=== PATIENT | female | born 1965 | race Two or more races ===

== ENCOUNTER 2017-06-04 07:02 | Emergency (ER) | payer BC ==
[2017-06-04 07:17] VITALS: BP 111/70
--- NOTE | 2017-06-04 07:28 | UC ---
Complaint Female HPI - HPI Summary HPI Summary: 52 yo female with 2 day hx of worsening dysuria/urgency/frequency no f/c no back pain no vag d/c or itch hx of pyleo in her 20's no hx stones - History Of Current Complaint Chief Complaint: UCGU Stated Complaint: URINARY ISSUE Time Seen by Provider: 06/04/17 07:27 Hx Obtained From: Patient Hx Last Menstrual Period: 09/2016 Onset/Duration: Gradual Onset, Lasting Days Timing: Intermittent, Lasting Minutes Severity Initially: Moderate Severity Currently: Mild Pain Intensity: 2 - severe with urination Pain Scale Used: 0-10 Numeric Character: Burning Aggravating Factor(s): Urination Associated Signs And Symptoms: Positive: Negative Related Hx: Similar Episode/Dx as: - uti - Allergies/Home Medications Allergies/Adverse Reactions: Allergies Allergy/AdvReac Type Severity Reaction Status Date / Time Caffeine Allergy JITTERY Verified 06/04/17 07:17 FOR HOURS GLUTEN INTOLERANCE Allergy ACHY Uncoded 06/04/17 07:17 JOINTS, FLARE UPS OF ASTHMA AND ARTHRITIS Home Medications: Home Medications Ibuprofen [Advil] 600 mg PO Q8HR PRN 06/04/17 [History Confirmed 06/04/17] PMH/Surg Hx/FS Hx/Imm Hx Previously Healthy: Yes - Surgical History Surgical History: Yes Surgery Procedure, Year, and Place: 1989' 5 inguinal hernias, [place]. 2000 & 2004 CSECTION X 2, [facility] [place]. 2006 ABDOMINOPLASTY AND UMBILICAL HERNIA REPAIR , [facility] [place]. 2009 LAPAROSCOPIC BILATERAL TUBAL LIGATION AND REMOVAL OF IUD, [facility] [place]. Right foot surgery- 07/2016- [place] - Family History Known Family History: Positive: Hypertension - Social History Alcohol Use: Rare Alcohol Amount: ONCE EVERY TWO WEEKS Substance Use Type: None Smoking Status (MU): Never Smoked Tobacco - Immunization History Most Recent Influenza Vaccination: Not UTD Review of Systems Constitutional: Negative Skin: Negative Eyes: Negative ENT: Negative Respiratory: Negative Cardiovascular: Negative Gastrointestinal: Negative Genitourinary: Dysuria, Frequency, Urgency Motor: Negative Neurovascular: Negative Musculoskeletal: Negative Neurological: Negative Psychological: Negative Is Patient Immunocompromised?: No All Other Systems Reviewed And Are Negative: Yes Physical Exam Triage Information Reviewed: Yes Appearance: Well-Appearing, No Pain Distress, Well-Nourished Vital Signs: Initial Vital Signs Temp 98.2 F 06/04/17 07:10 Pulse 68 06/04/17 07:10 Resp 16 06/04/17 07:10 BP 111/70 06/04/17 07:10 Pulse Ox 100 06/04/17 07:10 Vital Signs Reviewed: Yes Eyes: Positive: Conjunctiva Clear ENT: Positive: Hearing grossly normal. Negative: Nasal congestion, Nasal drainage, Trismus, Muffled/hoarse voice Neck: Positive: Supple, Nontender Respiratory: Positive: Lungs clear, Normal breath sounds, No respiratory distress Cardiovascular: Positive: RRR, No Murmur Abdomen Description: Positive: Nontender, No Organomegaly, Soft. Negative: CVA Tenderness (R), CVA Tenderness (L) Bowel Sounds: Positive: Present Musculoskeletal: Positive: ROM Intact, No Edema Neurological: Positive: Alert, Muscle Tone Normal Psychological Exam: Normal Skin Exam: Normal Diagnostics - Laboratory Diagnostic Studies Completed/Ordered: udip +++leuks and RBCs Complaint Female Dx - Differential Dx/Diagnosis Provider Diagnoses: acute cystitis Discharge - Discharge Plan Condition: Stable Disposition: HOME Prescriptions: Cephalexin CAP* [Keflex 500 CAP*] 500 mg PO BID #14 cap Fluconazole 150 MG (NF) [Diflucan 150 mg (NF)] 150 mg PO ONCE #1 tab Phenazopyridine TAB* [Pyridium 100 mg TAB*] 100 mg PO TID #6 tab Patient Education Materials: Urinary Tract Infection in Women (ED) Referrals: Elsi Slater MD [Primary Care Provider] - If Needed Additional Instructions: recheck for new or worsening symptoms recheck if not better in 2 days a urine culture is pending
[2017-06-04] MEDS ORDERED: Cephalexin CAP* 500 MG PO ONE (07:33)
[2017-06-04] MEDS ORDERED: Phenazopyridine TAB* 100 MG PO ONE (07:34)
== END 2017-06-04 07:46 | disposition home or self-care (01) ==
LOC: UCEAST 07:02
DX: N30.00 Acute cystitis without hematuria (principal); B95.7 Other staphylococcus as the cause of diseases classified elsewhere
CPT/HCPCS: 81003; 87077; 87086; 99212; A9270-GY; G0463

== ENCOUNTER 2019-07-19 05:42 | Inpatient (IN) | payer BC ==
[~2019-07-19 05:42] MED LIST: Buffered Lidocaine 1% SYRIN* 1 ML/SYRINGE INTRADERM ONE
--- OUTSIDE RECORDS SUMMARY | 2019-07-19 05:45 | XMS REPORT | Continuity of Care Document ---
:1965 External Reference #:[id number] Author Name Delgado Cowan MD (transmitted by agent of provider Margaret Lebron ) Address [address] [place] [address] Problems Active Problems Provider Date Cervical spondylosis without myelopathy Fredy Ge M.D. Onset: 12/01/2013 Social History Type Date Description Comments Sex Unknown Smokeless Tobacco Never Used Smokeless Tobacco ETOH Use Rarely consumes alcohol Tobacco Use Start: Unknown Patient has never smoked Recreational Drug Use Denies Drug Use Smoking Status Reviewed: 07/13/19 Patient has never smoked Exercise Type/Frequency Exercises regularly Allergies, Adverse Reactions, Alerts Active Allergies Reaction Severity Comments Date Dog Dander 06/11/2016 Cat Dander 06/11/2016 Codeine states had issues with breath 07/13/2019 Inactive Allergies NKDA 12/20/2013 Medications Active Medications SIG Qnty Indications Ordering Provider Date Tlso Brace When out of bed M51.36 Vassilios 05/06/2019 after surgery MD Chapo Acyclovir 1 by mouth 5 x d 75caps Fredy Ge, 11/30/2013 200mg for 5 days as M.D. Capsules needed Nizoral use as directed 3 Unknown 2% Shampoo times week Ibuprofen as needed Unknown 200mg Capsules Albuterol Sulfate prn Unknown Medications Administered in Office Medication SIG Qnty Indications Ordering Provider Date Depomedrol 40MG Lloyd Maxwell M.D. 03/04/2016 Injection Immunizations Description No Information Available Vital Signs Date Vital Result Comment 07/13/2019 12:58pm Height 64 inches 5'4" Weight 121.00 lb Heart Rate 78 /min BP Systolic 90 mmHg BP Diastolic 60 mmHg Pain Level 7 BMI (Body Mass Index) 20.8 kg/m2 05/06/2019 10:36am Height 64 inches 5'4" Weight 120.00 lb BP Systolic 112 mmHg BP Diastolic 72 mmHg Pain Level 8 BMI (Body Mass Index) 20.6 kg/m2 Results Test Acquired Date Facility Test Result H/L Range Note Type & Screen 07/06/2019 [facility] Patient Blood O Positive [address] [place] [address] [phone] Antibody Screen NEGATIVE 1 LOW BACK PAIN, SPINAL STENOSIS, LUMBAR REGION WITH Procedures Date Code Description Status 11/16/2017 [id number] Colonoscopy Completed Medical Devices Description No Information Available Encounters Type Date Location Provider Dx Diagnosis Office Visit 05/06/2019 [facility] M54.5 Low back pain 10:30a Of Roddy Cowan MD M48.061 Spinal stenosis, lumbar region without neurogenic bere M51.36 Other intervertebral disc degeneration, lumbar region Office Visit 03/02/2019 9:00a Neurosurgery Eloisa M54.5 Low back pain Services [facility] Office Visit 02/16/2019 1:30p Neurosurgery [facility]isa M48.061 Spinal stenosis, [facility] lumbar region without neurogenic bere M54.5 Low back pain Assessments Date Code Description Provider 05/17/2019 M54.5 Low back pain Delgado Cowan MD 05/17/2019 M48.061 Spinal stenosis of lumbar region Delgado Cowan MD 05/17/2019 M51.36 Other intervertebral disc degeneration, Delgado Cowan MD lumbar region 05/06/2019 M54.5 Low back pain Delgado Cowan MD 05/06/2019 M48.061 Spinal stenosis of lumbar region Delgado Cowan MD 05/06/2019 M51.36 Other intervertebral disc degeneration, Delgado Cowan MD lumbar region 03/02/2019 M54.5 Low back pain ALLIE Ramírez 02/16/2019 M48.061 Spinal stenosis of lumbar region ALLIE Ramírez 02/16/2019 M54.5 Low back pain ALLIE Ramírez Plan of Treatment Future Appointment(s):10/28/2019 8:30 am - Delgado Cowan MD at [facility]08/24/2019 9:30 am - Delgado Cowan MD at [facility]07/27/2019 11:30 am - Delgado Cowan MD at [facility]07/19/2019 7:30 am - ALLIE Ramírez at [facility]07/19/2019 7:30 am - Delgado Cowan MD at [facility] Functional Status Description No Information Available Mental Status Description No Information Available Referrals Description No Information Available
[2019-07-19] MEDS ORDERED: Lactated Ringers 1000 ML Bag* 1,000 ML IV SCH (06:00)
[2019-07-19] MEDS ORDERED: Famotidine IV* 10 MG/ML 2 ML (20 mg) IV ONE (06:00)
[2019-07-19] MEDS ORDERED: Dexamethasone IV* 4 MG/ML 1 ML (4 MG) IV SLOW PU ONE (06:00)
[2019-07-19] MEDS ORDERED: Bacitracin INJECTION* 50,000 UNITS ONE (06:40)
[2019-07-19] MEDS ORDERED: Bupivacaine 0.25% EPI 200,000* 30 ML SDV ONE (06:40)
[2019-07-19] MEDS ORDERED: Famotidine IV* 10 MG/ML 2 ML (20 mg) ONE (07:06)
[2019-07-19] MEDS ORDERED: Buffered Lidocaine 1% SYRIN* 1 ML/SYRINGE INTRADERM ONE (07:06)
[2019-07-19] MEDS ORDERED: Dexamethasone IV* 4 MG/ML 1 ML (4 MG) ONE (07:06)
[2019-07-19] MEDS ORDERED: ceFAZolin 2 GM PREMIX in ORs 2 GM/50 ML BAG ONE (07:06)
[2019-07-19] MEDS ORDERED: Lidocaine 2% PF * 5 ML VIAL ONE (07:18)
[2019-07-19] MEDS ORDERED: Succinylcholine* 20 MG/ML 10 ML VIAL ONE (07:18)
[2019-07-19] MEDS ORDERED: Propofol* 10 MG/ML 20 ML BTL ONE (07:18)
[2019-07-19] MEDS ORDERED: Midazolam* 1 MG/ML 5 ML VIAL (5 MG) ONE (07:18)
[2019-07-19] MEDS ORDERED: fentaNYL* 50 MCG/ML 2 ML VIAL (100 MCG VIAL) ONE ×4 (07:18→13:01)
[2019-07-19] MEDS ORDERED: Naloxone* 0.4 MG/ML 1 ML VIAL IV PRN (07:42)
[2019-07-19] MEDS ORDERED: Ibuprofen TAB* 600 MG PO PRN (07:42)
[2019-07-19] MEDS ORDERED: oxyCODONE/Acetamin 5/325 MG* TAB PO PRN (07:42)
[2019-07-19] MEDS ORDERED: DiMENhydriNATE IV* 50 MG/ML VIAL IV PUSH PRN (07:42)
[2019-07-19] MEDS ORDERED: HYDROcodone/ACETAMIN 5-325 MG* 1 TAB PO PRN (07:42)
[2019-07-19] MEDS ORDERED: Remifentanil* 2 MG VIAL ONE (07:59)
[2019-07-19] MEDS ORDERED: Phenylephrine 10 MG/ML VIAL* 1 ML VIAL ONE (08:28)
[2019-07-19] MEDS ORDERED: Phenylephrine 40 MCG/ML SYRINGE ONE (08:31)
[2019-07-19] MEDS ORDERED: EPHEDrine (Pressors)* 50 MG/ML VIAL ONE (08:36)
[2019-07-19] MEDS ORDERED: Propofol* 500 MG/50 ML BTL ONE (08:46)
[2019-07-19] MEDS ORDERED: Ondansetron INJ* 2 MG/ML VIAL ONE (10:58)
[2019-07-19] MEDS: fentaNYL* 50 MCG/ML 2 ML VIAL (100 MCG VIAL) IV PRN ×5 (11:40→13:03)
[2019-07-19] MEDS ORDERED: Acetaminophen TAB* 325 MG PO PRN (11:44)
[2019-07-19] MEDS ORDERED: Magnesium Hydroxide LIQ* 30 ML UDC PO PRN (11:44)
[2019-07-19] MEDS ORDERED: oxyCODONE/Acetamin 5/325 MG* TAB ONE ×2 (11:47→13:01)
[2019-07-19] MEDS ORDERED: Ibuprofen TAB* 600 MG ONE (12:36)
--- NOTE | 2019-07-19 14:30 | CONS ---
[facility] MEDICINE CONSULTATION REPORT: DATE OF CONSULT: 07/19/19 PROVIDER: Precious Tarango NP ATTENDING PHYSICIAN: Dr. Cowan. CONSULTING PHYSICIAN: Dr. Belén Zhu (dictated by Precious Tarango NP). REASON FOR CONSULT: Co-management of care during this hospitalization. HISTORY OF PRESENT ILLNESS: Ms. Alan is a 54-year-old female with a past medical history significant for asthma, who complained of severe lower back pain for approximately 3 years. Due to the ongoing pain and daily limitations of activities, the patient was seen by Dr. Cowan, who recommended L5-S1 MIS TLIF with PEEK. The patient presented today for the elective lower back surgery with Dr. Cowan. Postoperatively, the patient denies any recent illnesses. She denies any fever , chills. She denies any unintended weight loss, chest pain, edema, cough, hemoptysis, or shortness of breath. No nausea, vomiting, diarrhea, or abdominal pain. She denies any gross hematuria or dysuria. Denies any focal weakness or sensory loss, visual complaints, dysphagia, arthralgias, myalgias, rashes, lesions, open sores, psychosis or anxiety. The patient does complain of soreness to her lower back. PAST MEDICAL HISTORY: Significant for asthma. PAST SURGICAL HISTORY: 1. Hernia repair. 2. . 3. Tubal ligation. 4. [place] teeth removed. 5. Foot surgery. HOME MEDICATIONS: None. ALLERGIES: To CODEINE. FAMILY HISTORY: No reported history of coronary artery disease. Mother with diabetes. Mother with breast cancer. SOCIAL HISTORY: The patient denies any tobacco, alcohol, or illicit drug use. She is . She lives with her child. Surrogate decision maker in the event she is unable to make her own decisions is her aunt, Ellen Cotter. She is a full code. REVIEW OF SYSTEMS: A 14-point review of systems was completed. All pertinent positives were mentioned in the HPI. PHYSICAL EXAM: General: At this time, Ms. Alan is a 54-year-old female. She is alert and oriented, resting on the stretcher in PACU. She is in no acute distress. Vital Signs: Blood pressure 119/79, heart rate 79, respirations are 17, O2 saturation 100%, temperature was 97.2. HEENT: Head is atraumatic, normocephalic. Eyes: EOMs are intact. Sclerae anicteric and not pale. Oral mucosa appeared to be moist. Neck is supple. Lungs are clear to auscultation bilaterally. No wheezes, rales, or rhonchi. Cardiac: S1, S2. Regular rate and rhythm. No murmurs, rubs, or gallops. Abdomen is soft and nontender. Bowel sounds are present x4. Extremities: She is able to move all 4 extremities. Sensation is intact in all 4 extremities. Pedal pulses are +2 bilaterally. Radial pulses are +2. Neurologic: She is awake, alert, oriented x3. Speech is clear. Thought process is intact. There are no gross focal deficits. Skin: Intact. DIAGNOSTIC STUDIES/LAB DATA: She had an INR on 06/22/19 that was 0.91. CBC from 06/22/19: WBCs 5.22, RBCs 4.17, hemoglobin 12.8, hematocrit was 37, platelet count was 236. Sodium 138, potassium 4.1, chloride 99, carbon dioxide was 25, glucose was 105, BUN was 14, creatinine 0.7, calcium was 9.3. Alkaline phosphatase was 44, ALTs were 12, ASTs were 15. Urine was within normal limits and urine culture showed no growth. ASSESSMENT AND PLAN: Ms. Alan is a 54-year-old female with a past medical history significant for asthma, who presented to [facility] [place] for an elective L5-S1 TLIF with PEEK with Dr. Cowan. Our recommendations are as follows: 1. Status post L5-S1 TLIF with PEEK. Management per Neurosurgery. PT/OT per Neurosurgery. Pain management per Neurosurgery. Bowel meds per Neurosurgery. DVT prophylaxis per Neurosurgery. 2. Asthma. The patient does not currently take any medications for her asthma. We will continue to monitor and treat as needed. 3. FEN: She can have a regular diet. 4. Code status: She is a full code. 5. DVT prophylaxis: She will be placed on SCDs. TIME SPENT: Time spent on this consultation was 45 minutes, greater than half that time was spent at the bedside reviewing events leading thus far to her hospitalization, performing physical exam, and reviewing my plan of care. I have discussed with my attending, Dr. Belén Zhu; she is in agreement with my plan. PRECIOUS TARANGO, FOREIGN EXCHANGE STUDENT COORDINATOR [id number]/[facility] #: [id number] GR[facility] SQUARE HOSPITALFabio
--- NOTE | 2019-07-19 15:36 | OP ---
DATE OF OPERATION: 07/19/19 - ROOM #331 DATE OF : 69 SURGEON: Delgado Cowan MD ASSISTANTS: 1. JAYLA Arriola 2. JAYLA Magallanes The case was done with the assistance of JAYLA because of the complexity of the case. ANESTHESIA: General. PRE-OP DIAGNOSIS: Degenerative disk disease. POST-OP DIAGNOSIS: Degenerative disk disease. OPERATIVE PROCEDURE: The patient underwent left L5-S1 MIS TLIF with PEEK interbody cage, DBX, right iliac crest bone graft through a separate incision, and pedicle screws at L5 and S1 with intraoperative monitoring and intraoperative navigation. ESTIMATED BLOOD LOSS: 30 cc. COMPLICATIONS: None. SUMMARY: The patient is a very pleasant 54-year-old female with complaints of severe axial back pain with severe disability. The patient failed conservative treatment modalities and she was offered the option of surgical intervention. After explaining expectations, limitations, and possible complications of the procedure to the patient in extent with complications including, but not limited to bleeding, infection, risk of injury to adjacent structures, coma, paralysis, , need for additional procedures, anesthesia risks, stroke, blindness, cancer, instability, hardware failure, adjacent level disease, pseudoarthrosis, spinal fluid leak, injury to the intraabdominal contents, loss of bladder or bowel control, post-operative hematoma, DVT, need for tracheostomy or gastrostomy, need for prolonged ICU stay, prolonged rehabilitation, prolonged hospitalization; the patient was agreeable to proceed with surgery and informed consent was obtained. The patient understood that her condition may not improve and in fact may get worse after surgery and that she may need to have additional procedures in the future. She also understood that operative plan may be modified according to intraoperative findings and conditions and that procedure may be abandoned or done in more than 1 stages. DESCRIPTION OF PROCEDURE: The patient was brought to the operating room and was placed under general anesthesia by the anesthesia team. She was carefully positioned prone on the Blake table and all bony prominences were meticulously padded. Her skin was prepped and draped in the standard fashion. After appropriate surgical pause and patient identification, a small incision over the right iliac crest was performed with #10 surgical blade after infiltrating the skin with local anesthetic. After this incision and with assistance of Jamshidi needle, the Corex needle was inserted and bone graft was harvested to be saved for use in the arthrodesis part of the procedure. Through the same incision, the navigation star was secured in place and intraoperative O-arm imaging was obtained. The patient's data was transferred to the navigation platform. Under stereotactic navigation, the trajectories of the pedicles at L5 and S1 were marked on the skin. The skin was infiltrated with local anesthetic and the pedicles were cannulated with the use of high- speed drill, awl-tip tap, and Medtronic Voyager ATS pedicle screws were inserted. 6.5 x 40 mm length for the S1 pedicle and 6.5 x 45 for the L5 level were used. Through the left incision and through a separate fascial incision, the METRx tubular retractor was inserted with assistance of navigation guidance. This was docked over the left L5-S1 facet and extended all the way to pars and the base of the spinous process. Intraoperative microscope was brought into the field, and after final exposure of all bony surfaces, high- speed drill was used perform a medial facetectomy and partial laminectomy. Bone from this part of the procedure was saved for the arthrodesis part of the procedure. Then, the laminectomy was finished with use of Kerrison punches. The ligamentum flavum was gently removed and the thecal sac and the S1 nerve root were readily identified. The medial and superior part of the S1 pedicle was carefully skeletonized, and after gently retracting the nerve root and the thecal sac medially, a #11 surgical blade was used to perform an annulotomy and diskectomy and disk space preparation was performed with use of pituitary rongeurs, serial dilators, Kerrison punches, and curettes. Then, after appropriate sizing of all the disk space, the mixture of locally harvested iliac crest bone graft as well as DBX was inserted into the disk space and then a Medtronic Elevate expandable PEEK cage was inserted after being filled with a mixture of the bone graft. The cage was gently expanded and after removing the expanded duty dental assistant and after confirmation of meticulous hemostasis, copious irrigation and meticulous inspection, the tubular retractor was gently removed and the fascial opening was closed with 0 interrupted Vicryl sutures. Then, attention was brought to insert two cobalt chrome rods. After appropriate sizing of the rods length, the cobalt chrome rods were inserted through the same incisions. These were secured in place with screw head caps and a second intraoperative O- arm imaging was obtained in order to confirm appropriate position of the hardware. O- arm imaging confirmed excellent placement of all hardware, and after final tightening of the cap screws, the extenders were removed as well as the navigation star, and the wounds were then copiously irrigated, and after confirmation of meticulous hemostasis and meticulous inspection, they were closed by layers. 0 interrupted Vicryl sutures were used to approximate the dorsal fascia defects and 2-0 inverted interrupted Vicryl sutures were used to approximate the subcutaneous tissue. The skin was then covered with Dermabond. At the end of the procedure, all counts were reported to be correct. The patient remained hemodynamically stable throughout the case. The patient was then turned supine, was extubated, and was transferred to recovery in excellent condition. [id number]/[facility] #: [id number] CONSTANTIN
--- NOTE | 2019-07-19 16:55 | PN ---
Progress Note - Progress Note Date of Service: 07/19/19 SOAP: Subjective: []Patient tolerated procedure well. On regular floor. Ambulated to bed. Tolerates liquids. Had nausea/ emesis earlier. Objective: []VSS, Afebrile Wound s,c,d AAOx3 KHRIS, CN II-XII intact Motor 5/5 all extremities Sensory grossly intact to light touch Assessment: []54 yof POD#0 Left L5-S1 MIS TLIF Plan: []Monitor VS, Neurochecks, Encourage ambulation XR in am Possible Dc in am. Full instructions were given. No Lifting, No bending, No driving Keep incision dry. May shower after 2 days. No baths Brace when out of bed Follow up in the office in 7-10 days (patient has appointment already) Appreciate IM care. Ernie Cowan MD
[2019-07-19] MEDS: Ondansetron INJ* 2 MG/ML VIAL IV PRN (18:00)
[2019-07-19] MEDS: HYDROcodone/ACETAMIN 5-325 MG* 1 TAB PO PRN (18:59)
[2019-07-20] MEDS: HYDROcodone/ACETAMIN 5-325 MG* 1 TAB PO PRN (00:26)
[2019-07-20] MEDS: Ondansetron INJ* 2 MG/ML VIAL IV PRN (00:26)
[2019-07-20] MEDS ORDERED: NS 0.9% 500 ML* 500 ML IV ONE (02:48)
[2019-07-20] MEDS ORDERED: Cyclobenzaprine TAB* 10 MG PO PRN (08:05)
--- NOTE | 2019-07-20 09:21 | PN ---
Subjective Date of Service: 07/20/19 Family History: Unchanged from Admission Social History: Unchanged from Admission Past Medical History: Unchanged from Admission Objective Active Medications: Acetaminophen (Tylenol Tab*) 650 mg PO Q4H PRN PRN Reason: MILD PAIN or TEMP > 100.4 Last Admin: 07/20/19 07:38 Dose: 650 mg Hydrocodone Bitart/Acetaminophen ([place] 5-325 Tab*) 2 tab PO Q4H PRN PRN Reason: PAIN - SEVERE Last Admin: 07/20/19 00:26 Dose: 2 tab Cyclobenzaprine HCl (Flexeril Tab*) 10 mg PO TID PRN PRN Reason: SPASMS Last Admin: 07/20/19 08:24 Dose: 10 mg Magnesium Hydroxide (Milk Of Magnesia Liq*) 30 ml PO DAILY PRN PRN Reason: CONSTIPATION Ondansetron HCl (Zofran Inj*) 4 mg IV Q6H PRN PRN Reason: NAUSEA/VOMITING Last Admin: 07/20/19 00:26 Dose: 4 mg Vital Signs - 8 hr 07/20/19 07/20/19 07/20/19 03:07 03:49 07:27 Temperature 98 F 99 F Pulse Rate 68 66 Respiratory 16 16 14 Rate Blood Pressure 110/66 104/50 (mmHg) O2 Sat by Pulse 99 98 Oximetry 07/20/19 07/20/19 07:47 08:24 Temperature Pulse Rate Respiratory 14 14 Rate Blood Pressure (mmHg) O2 Sat by Pulse Oximetry Oxygen Devices in Use Now: None Assess/Plan/Problems-Billing Assessment: This is a 54 year old female with a past medical history significant for asthma who was admitted on 07/19/19 S/P TLIF with PEEK cage. Status and Disposition: Condition: stable Disposition: Admit inpatient.
[2019-07-20] MEDS ORDERED: oxyCODONE/Acetamin 5/325 MG* TAB PO PRN ×2 (09:24→09:25)
[2019-07-20] MEDS ORDERED: NS 0.9% 1000 ML** 1,000 ML IV ONE (11:08)
[2019-07-20 15:11] VITALS: BP 92/50
--- NOTE | 2019-07-20 20:52 | PN ---
Progress Note - Progress Note Date of Service: 07/20/19 SOAP: Subjective: [] Patient was earlier in am. No events ON. Ambulates. Had some PERES ON with narcotics, resolved this am. No positional PERES. Voids. Objective: []VSS, Afebrile Wound s,c,d AAOx3 KHRIS, CN II-XII intact Motor 5/5 all extremities Sensory grossly intact to light touch Assessment: []54 yof POD#1 Left L5-S1 MIS TLIF Plan: []Monitor VS, Neurochecks, Encourage ambulation XR revealed good placement of hardware, good alignment of lumbar spine. DC later today Full instructions were given. No Lifting, No bending, No driving Keep incision dry. May shower after 2 days. No baths Brace when out of bed Follow up in the office in 7-10 days (patient has appointment already) Appreciate IM care. Ernie Cowan MD
--- NOTE | 2019-07-20 21:51 | DS ---
CC: Dr. Slater; Dr. Cowan.* DISCHARGE SUMMARY: DATE OF ADMISSION: 07/19/19 DATE OF DISCHARGE: 07/20/19 PROVIDER: Chitra Bhandari NP ATTENDING PHYSICIAN: Dr. Lucia.* (DICTATED BY ALLIE LEON) PRIMARY CARE PHYSICIAN: Dr. Slater. CONSULTING PHYSICIAN: Dr. Cowan. PRIMARY DIAGNOSIS: Status post left L5-S1 TLIF with PEEK cage. SECONDARY DIAGNOSIS: Asthma. PROCEDURE: Status post L5-S1 TLIF with PEEK cage. STUDIES: Postoperative lumbar x-rays showed status post spinal fusion. PERTINENT LABORATORY DATA: None for this admission. HISTORY OF PRESENT ILLNESS/HOSPITAL COURSE: This is a 54-year-old female with the past medical history significant for asthma and spinal stenosis who was admitted on 07/19/19 status post L5-S1 TLIF with PEEK cage. Her hospital course was relatively unremarkable except for softer blood pressures, intermittently symptomatic upon position changes. Received 1 L of normal saline bolus this morning which she responded well. Symptoms decreased. Encouraged that she continue oral intake. Pain well managed with 1 Percocet and Flexeril. Today, she was seen resting in bed, had good bed mobility, able to roll without assistance while keeping her spine in line. [place] comfortable with putting her brace on and off independently and able to walk without much difficulty. Denied any numbness or tingling in either extremity, able to dorsi and plantarflex. REVIEW OF SYSTEMS: An 11-point system review was performed which was negative for any chest pain, shortness of breath, abdominal pain, nausea, vomiting, headaches, dizziness, lightheadedness. Positive for lower back pain. PHYSICAL EXAMINATION: 98.7 Fahrenheit, 75 pulse, 16 respiration, 96% oxygen on room air, 92/50 blood pressure. General: This is a well-developed woman seen resting in bed, no acute distress noted. Eyes: Conjunctivae pink and moist. PERRLA. EOM intact. ENT: Mucous membranes are moist. Oropharynx clear. Neck is supple. Cardiac: S1 and S2 present, heart rate regular. No murmurs, gallops, or rubs appreciated. Respiratory: Lung sounds clear throughout bilaterally on room air with no accessory muscle use noted. Abdomen: Soft, nontender, and nondistended with positive bowel sounds x4. Musculoskeletal: Able to move all extremities. 2+ positive pedal pulses. No clubbing or cyanosis of the digits. Neurological: Sensation intact to light touch, able to move all extremities. No focal deficits appreciated. Skin: Dressings to lower back are clean, dry, and intact with no evidence of erythema, edema, or drainage. Psychiatric: Alert and oriented x4. No signs and symptoms of anxiety or depression. DISCHARGE PLAN: Diet is regular diet. ACTIVITY: No bending, twisting, or lifting anything heavier than a coffee cup. RETURN PRECAUTIONS: The patient is to return to the emergency room if she develops sudden chest pain, shortness of breath. She should call Dr. Cowan should she notice any signs or symptoms of infection including fever of 101 degrees or higher, drainage from the incisions or if she notices any increasing redness or edema surrounding the incisions, to wear back brace at all times when out of bed. PLAN FOR EACH CONDITION: 1. Status post L5-S1 TLIF PEEK cage. She is to follow up with Dr. Cowan within the week. She already has an appointment scheduled to use Flexeril and Percocet for pain control and to wean off the narcotic pain medicine as soon as her pain will allow. I recommend that she uses stool softeners while on the narcotics. 2. Asthma. Appears to be under control at this time. Had no exacerbations in the hospital. Does not have an inhaler at home as she has not had the need for it in sometime. CONTINUED HOME MEDICATIONS: 1. Acetaminophen 650 mg p.o. q.4 hours p.r.n. 2. Cyclobenzaprine 10 mg p.o. t.i.d. p.r.n. 3. Oxycodone/acetaminophen 5/325 one tab p.o. q.4 hours p.r.n. 4. Acyclovir 400 mg p.o. b.i.d. p.r.n. CONDITION UPON DISCHARGE: Stable. DISPOSITION: To home. Time spent on patient is about 30 minutes. ALLIE LEON [id number]/[facility] #: [id number] [employer]
== END 2019-07-20 16:35 | disposition home or self-care (01) | DRG 304 ==
LOC: AA 05:42 → SSU 11:44
PROVIDERS: ADMIT Neurological Surgery; ATTEND Internal Medicine
PROC: 0QB20ZZ Excision of Right Pelvic Bone, Open Approach (ICD-10-PCS; 2019-07-19)
PROC: 01NB0ZZ Release Lumbar Nerve, Open Approach (ICD-10-PCS; 2019-07-19)
PROC: 0ST20ZZ Resection of Lumbar Vertebral Disc, Open Approach (ICD-10-PCS; 2019-07-19)
PROC: 0SG30AJ Fusion of Lumbosacral Joint with Interbody Fusion Device, Posterior Approach, Anterior Column, Open Approach (ICD-10-PCS; principal; 2019-07-19 07:30)
DX: M51.27 Other intervertebral disc displacement, lumbosacral region (principal); M48.061 Spinal stenosis, lumbar region without neurogenic claudication; M51.36 Other intervertebral disc degeneration, lumbar region; J45.909 Unspecified asthma, uncomplicated; R51 Headache; Z88.5 Allergy status to narcotic agent; Z83.3 Family history of diabetes mellitus; Z80.3 Family history of malignant neoplasm of breast; Z79.1 Long term (current) use of non-steroidal anti-inflammatories (NSAID); Z79.51 Long term (current) use of inhaled steroids; Z79.899 Other long term (current) drug therapy; Z82.49 Family history of ischemic heart disease and other diseases of the circulatory system
CPT/HCPCS: 72100; 76000; A9270-GY; C1713; C9359; J0330; J0690; J1100; J2250; J2405; J2704; J3010

== ENCOUNTER 2019-07-23 21:14 | Emergency (ER) | payer BC ==
[2019-07-23 21:31] LABS: ABS Basophils 0.1 10^3/ul (0-0.2); ABS Eosinophils 0.2 10^3/ul (0-0.6); ABS Lymphocytes 1.9 10^3/ul (1.0-4.8); ABS Monocytes 0.4 10^3/ul (0-0.8); ABS Neutrophils 2.9 10^3/ul (1.5-7.7); Eosinophil % 3.1 %; Hematocrit 38 % (35-47); Hemoglobin 13.3 g/dL (12.0-16.0); Lymphocyte % 33.6 %; Mean Corpuscular HGB Conc 35 g/dL (31-36); Mean Corpuscular Hemoglobin 32 pg (27-31); Mean Corpuscular Volume 91 fL (80-97); Mean Platelet Volume 7.5 fL (7.4-10.4); Nucleated Red Blood Cells % 0.1; Platelet Count 251 10^3/uL (150-450); Red Blood Count 4.23 10^6 /uL (3.70-4.87); Red Cell Distribution Width 12 % (10-15); White Blood Count 5.5 10^3/uL (3.5-10.8)
--- NOTE | 2019-07-23 21:33 | ED ---
Palpitations / Dysrhythmia - HPI Summary HPI Summary: Patient with history of back fusion surgery 4 days ago states she stopped taking her postop prescription oxycodone this afternoon with subsequent episode of dyspnea, lightheadedness and palpitations that lasted about an hour. Patient decided it was possible withdrawal symptoms and took half an oxycodone with subsequent resolution of symptoms prior to arrival. Denies prior history of same symptoms. Denies prior cardiac history. Denies family cardiac history. Denies fever, cough, sore throat, CP, N/V/D, abdominal pain, change in urine, change in BM. Medical history is exercise-induced asthma. Nonsmoker. - History of Current Complaint Time Seen by Provider: 07/23/19 21:16 Hx Obtained From: Patient Onset/Duration: Sudden Onset, Lasting Hours Severity Initially: Moderate Severity Currently: Moderate Character: Fast, Irregular Aggravating: Rest Alleviating: Other Associated Signs & Symptoms: Lightheadedness, Shortness of Breath - Allergy/Home Medications Allergies/Adverse Reactions: Allergies Allergy/AdvReac Type Severity Reaction Status Date / Time caffeine Allergy JITTERY Verified 07/19/19 06:59 FOR HOURS codeine Allergy Difficulty Verified 07/19/19 06:59 Breathing GLUTEN INTOLERANCE Allergy ACHY Uncoded 07/19/19 06:59 JOINTS, FLARE UPS OF ASTHMA AND ARTHRITIS PMH/Surg Hx/FS Hx/Imm Hx Endocrine/Hematology History: Reports: Hx Anemia - TEND TO HAVE LOW IRON COUNTS Denies: Hx Diabetes, Hx Thyroid Disease Cardiovascular History: Reports: Other Cardiovascular Problems/Disorders - HX OF LOW BLOOD PRESSURE Denies: Hx Hypertension, Hx Pacemaker/ICD Respiratory History: Reports: Hx Asthma - INHALER PRN Denies: Hx Chronic Obstructive Pulmonary Disease (COPD), Other Respiratory Problems/Disorders GI History: Reports: Other GI Disorders - GLUTEN INTOLERANT Denies: Hx Ulcer History: Denies: Hx Renal Disease, Other Problems/Disorders Musculoskeletal History: Reports: Hx Arthritis - NO MEDS, Hx Tendonitis - LEFT UPPER FOOT Denies: Other Musculoskeletal History Sensory History: Reports: Hx Contacts or Glasses - CONTACT, WILL WEAR GLASSES DOS Denies: Hx Hearing Aid Opthamlomology History: Reports: Hx Contacts or Glasses - CONTACT, WILL WEAR GLASSES DOS Neurological History: Denies: Other Neuro Impairments/Disorders Psychiatric History: Denies: Hx Panic Disorder - Cancer History Hx Chemotherapy: No Hx Radiation Therapy: No - Surgical History Surgery Procedure, Year, and Place: 1989'S 5 inguinal hernias, [place]. 2000 & [place] 2[place] [facility] [place] ABDOMINOPLASTY AND UMBILICAL HERNIA REPAIR , [facility] [place]. 2010 LAPAROSCOPIC BILATERAL TUBAL LIGATION AND REMOVAL OF IUD, [facility] [place]. [place] foot surgery- 07/2016- [facility] Hx Anesthesia Reactions: Yes - PROBLEMS BREATHING WITH A PAIN MED?GIVEN , IN [place] Infectious Disease History: No Infectious Disease History: Reports: History Other Infectious Disease - herpes Denies: Hx Clostridium Difficile, Hx Hepatitis, Hx Human Immunodeficiency Virus (HIV), Hx of Known/Suspected MRSA, Hx Shingles, Hx Tuberculosis, Hx Known/ Suspected VRE, Traveled Outside the [place] in Last 30 Days - Family History Known Family History: Positive: Hypertension - Social History Alcohol Use: None Alcohol Amount: ONCE EVERY TWO WEEKS Substance Use Type: Reports: None Smoking Status (MU): Never Smoked Tobacco Review of Systems Constitutional: Negative Eyes: Negative ENT: Negative Positive: Palpitations Positive: Shortness Of Breath Gastrointestinal: Negative Genitourinary: Negative Musculoskeletal: Negative Skin: Negative Neurological: Negative Psychological: Normal All Other Systems Reviewed And Are Negative: Yes Physical Exam Triage Information Reviewed: Yes Vital Signs On Initial Exam: Initial Vitals Temp Pulse Resp BP Pulse Ox 97.5 F 94 16 130/90 97 07/23/19 21:15 07/23/19 21:15 07/23/19 21:15 07/23/19 21:15 07/23/19 21:15 Vital Signs Reviewed: Yes Appearance: Positive: Well-Appearing Skin: Positive: Warm Head/Face: Positive: Normal Head/Face Inspection Eyes: Positive: Normal ENT: Positive: Normal ENT inspection Neck: Positive: Supple Cardiovascular: Positive: Normal Abdomen Description: Positive: Nontender Musculoskeletal: Positive: Normal Neurological: Positive: Normal Psychiatric: Positive: Normal AVPU Assessment: Alert - Cap[place] Coma Scale Best Eye Response: 4 - Spontaneous Best Motor Response: 6 - Obeys Commands Best Verbal Response: 5 - Oriented Coma Scale Total: 15 Procedures - Sedation Patient Received Moderate/Deep Sedation with Procedure: No Diagnostics - Vital Signs Vital Signs Temp Pulse Resp BP Pulse Ox 07/23/19 21:29 79 07/23/19 21:25 83 24 150/92 97 07/23/19 21:15 97.5 F 94 16 130/90 97 - Laboratory Lab Results: Lab Results 07/23/19 Range/Units 21:23 WBC 5.5 (3.5-10.8) 10^3/uL RBC 4.23 (3.70-4.87) 10^6 /uL Hgb 13.3 (12.0-16.0) g/dL Hct 38 (35-47) % MCV 91 (80-97) fL MCH 32 H (27-31) pg MCHC 35 (31-36) g/dL RDW 12 (10-15) % Plt Count 251 (150-450) 10^3/uL MPV 7.5 (7.4-10.4) fL Neut % (Auto) 52.7 % Lymph % (Auto) 33.6 % [place] % (Auto) 7.9 % Eos % (Auto) 3.1 % Baso % (Auto) 2.7 % Absolute Neuts (auto) 2.9 (1.5-7.7) 10^3/ul Absolute Lymphs (auto) 1.9 (1.0-4.8) 10^3/ul Absolute Monos (auto) 0.4 (0-0.8) 10^3/ul Absolute Eos (auto) 0.2 (0-0.6) 10^3/ul Absolute Basos (auto) 0.1 (0-0.2) 10^3/ul Absolute Nucleated RBC 0.0 10^3/ul Nucleated RBC % 0.1 Result Diagrams: 07/23/19 21:23 07/23/19 21:23 Lab Statement: Any lab studies that have been ordered have been reviewed, and results considered in the medical decision making process. Course/Dx - Course Course Of Treatment: Patient with history of back fusion surgery 4 days ago states she stopped taking her postop prescription oxycodone this afternoon with subsequent episode of dyspnea, lightheadedness and palpitations that lasted about an hour. Patient decided it was possible withdrawal symptoms and took half an oxycodone with subsequent resolution of symptoms prior to arrival. Denies prior history of same symptoms. Denies prior cardiac history. Denies family cardiac history. Denies fever, cough, sore throat, CP, N/V/D, abdominal pain, change in urine, change in BM. Medical history is exercise-induced asthma. Nonsmoker. Vital signs within normal limits. Labs unremarkable. EKG sinus rhythm with heart rate of 78, normal P axis. No prior EKG on file. Patient advised to taper off oxycodone follow-up with primary care. - Diagnoses Provider Diagnoses: Palpitations, Constipation Discharge ED - Sign-Out/Discharge Documenting (check all that apply): Patient Departure - Discharge Plan Condition: Stable Disposition: HOME Prescriptions: Magnesium CITRATE* [Citrate of Magnesia*] 300 ml PO SEE INSTRUCTIONS PRN #1 [id number] PRN Reason: Constipation Patient Education Materials: Heart Palpitations (ED), Constipation (ED) Referrals: Elsi Slater MD [Primary Care Provider] - Additional Instructions: Taper off oxycodone gradually. Take magnesium citrate as directed for constipation. Return to the ED for any new or worsening symptoms. - Billing Disposition and Condition Condition: STABLE Disposition: Home
[2019-07-23 21:48] LABS: Albumin 4.2 g/dL (3.2-5.2); Albumin/Globulin Ratio 1.6 (1-3); BUN/Creatinine Ratio 15.8 (8-20); C Reactive Protein 13.4 mg/L (<8.01); Calcium 9.1 mg/dL (8.6-10.3); EGFR African American 96.7 (>60); EGFR Non-African American 79.9 (>60); Globulin 2.7 g/dL (2-4); Potassium 3.7 mmol/L (3.5-5.0); Total Bilirubin 0.5 mg/dL (0.2-1.0); Total Protein 6.9 g/dL (6.4-8.9)
[2019-07-23 22:11] LABS: TSH (Thyroid Stimulating Horm) 2.52 mcIU/mL (0.34-5.60)
[2019-07-23 22:52] VITALS: BP 115/66
== END 2019-07-23 22:55 | disposition home or self-care (01) ==
LOC: ED 21:14
DX: R00.2 Palpitations (principal); K59.00 Constipation, unspecified; R42 Dizziness and giddiness; R06.02 Shortness of breath; J45.909 Unspecified asthma, uncomplicated; Z98.1 Arthrodesis status; Z88.5 Allergy status to narcotic agent; Z91.09 Other allergy status, other than to drugs and biological substances
CPT/HCPCS: 36415; 80053; 83735; 84443; 84484; 85025; 86140; 93005; 99283

== ENCOUNTER 2019-07-25 10:47 | Emergency (ER) | payer BC ==
--- NOTE | 2019-07-25 11:10 | ED ---
Palpitations / Dysrhythmia - HPI Summary HPI Summary: The patient is a 54 y/o F presenting to [facility] with a chief complaint of irregular and fast heart rate over the last week with worsening today. She reports that she had back surgery for a L5-S1 fusion, which was performed by Dr. Cowan from neurosurgery on 07/19/19. She began taking Oxycodone then for the pain as prescribed, but she stopped taking it on 07/22/19 because she didnt like the effects of the medication. Since stopping the medication, she has been experiencing tachycardia. On 07/23/19, she felt like she had an irregular heart rate so she took Oxycodone, called an ambulance, and was seen in the ED, after which her heart rate became normal. She had a normal EKG at that time without any acute changes. She states she was advised to taper off of the Oxycodone upon discharge. Today, she had of an Oxycodone pill at 0730 but continued to experience tachycardia at 116 bpm and an arrhythmia, so she came back to the ED after discussing her symptoms with Dr. Cowan this morning because her heart rate is usually in the 60s bpm. She denies any fever or chest pain. Currently, she is not in any pain, and she states she is not experiencing much back pain from the surgery either. She does not use caffeine. PMHx: anemia , asthma, arthritis. Nonsmoker, occasional EtOH, no substance use. Medications reviewed. Allergies noted. - History of Current Complaint Chief Complaint: EDDysrhythmPalp Time Seen by Provider: 07/25/19 10:59 Hx Obtained From: Patient Onset/Duration: Lasting Hours - since 0730 this morning, Still Present Severity Initially: Mild Severity Currently: Mild Character: Fast, Irregular Aggravating: Nothing Alleviating: Nothing Associated Signs & Symptoms: Negative - Allergy/Home Medications Allergies/Adverse Reactions: Allergies Allergy/AdvReac Type Severity Reaction Status Date / Time caffeine Allergy JITTERY Verified 07/25/19 10:57 FOR HOURS codeine Allergy Difficulty Verified 07/25/19 10:57 Breathing GLUTEN INTOLERANCE Allergy ACHY Uncoded 07/19/19 06:59 JOINTS, FLARE UPS OF ASTHMA AND ARTHRITIS Home Medications: Home Medications Magnesium Hydroxide LIQ* [Milk of Magnesia LIQ*] 30 ml PO BID PRN 07/25/19 [ History Confirmed 07/25/19] PMH/Surg Hx/FS Hx/Imm Hx Endocrine/Hematology History: Reports: Hx Anemia - TEND TO HAVE LOW IRON COUNTS Denies: Hx Diabetes, Hx Thyroid Disease Cardiovascular History: Reports: Other Cardiovascular Problems/Disorders - HX OF LOW BLOOD PRESSURE Denies: Hx Hypertension, Hx Pacemaker/ICD Respiratory History: Reports: Hx Asthma - INHALER PRN Denies: Hx Chronic Obstructive Pulmonary Disease (COPD), Other Respiratory Problems/Disorders GI History: Reports: Other GI Disorders - GLUTEN INTOLERANT Denies: Hx Ulcer History: Denies: Hx Renal Disease, Other Problems/Disorders Musculoskeletal History: Reports: Hx Arthritis - NO MEDS, Hx Tendonitis - LEFT UPPER FOOT Denies: Other Musculoskeletal History Sensory History: Reports: Hx Contacts or Glasses - CONTACT, WILL WEAR GLASSES DOS Denies: Hx Hearing Aid Opthamlomology History: Reports: Hx Contacts or Glasses - CONTACT, WILL WEAR GLASSES DOS Neurological History: Denies: Other Neuro Impairments/Disorders Psychiatric History: Denies: Hx Panic Disorder - Cancer History Hx Chemotherapy: No Hx Radiation Therapy: No - Surgical History Surgical History: Yes Surgery Procedure, Year, and Place: 5 inguinal hernias, [place]. 2000 & 2004 CSECTION X 2, [facility] [place]. 2006 ABDOMINOPLASTY AND UMBILICAL HERNIA REPAIR , [facility] [place]. 2009 LAPAROSCOPIC BILATERAL TUBAL LIGATION AND REMOVAL OF IUD, [facility] [place]. Right foot surgery- 07/2016- [facility] Hx Anesthesia Reactions: Yes - PROBLEMS BREATHING WITH A PAIN MED?GIVEN , IN [place] Infectious Disease History: No Infectious Disease History: Reports: History Other Infectious Disease - herpes Denies: Hx Clostridium Difficile, Hx Hepatitis, Hx Human Immunodeficiency Virus (HIV), Hx of Known/Suspected MRSA, Hx Shingles, Hx Tuberculosis, Hx Known/ Suspected VRE, Traveled Outside the in Last 30 Days - Family History Known Family History: Positive: Hypertension - Social History Alcohol Use: Occasionally Alcohol Amount: ONCE EVERY TWO WEEKS Hx Substance Use: Yes Substance Use Type: Reports: None Hx Tobacco Use: No Smoking Status (MU): Never Smoked Tobacco Review of Systems Negative: Fever Positive: Palpitations - irregular, fast. Negative: Chest Pain All Other Systems Reviewed And Are Negative: Yes Physical Exam - Summary Physical Exam Summary: Appearance: The patient is well-nourished in no acute distress and in no acute pain. Skin: The skin is warm and dry, and skin color reflects adequate perfusion. The wounds from her recent back surgery are dressed, and the dressings are clean. HEENT: The head is normocephalic and atraumatic. The pupils are equal and reactive. The conjunctivae are clear and without drainage. Nares are patent and without drainage. Mouth reveals moist mucous membranes, and the throat is without erythema and exudate. The external ears are intact. The ear canals are patent and without drainage. The tympanic membranes are intact. Neck: The neck is supple with full range of motion and non-tender. There are no carotid bruits. There is no neck vein distension. Respiratory: Chest is non-tender. Lungs are clear to auscultation and breath sounds are symmetrical and equal. Cardiovascular: Heart is regular rate and rhythm. There is no murmur or rub auscultated. There is no peripheral edema and pulses are symmetrical and equal. Abdomen: The abdomen is soft and non-tender. There are normal bowel sounds heard in all four quadrants and there is no organomegaly palpated. Musculoskeletal: There is no back tenderness noted. Extremities are non-tender with full range of motion. There is good capillary refill. There is no peripheral edema or calf tenderness elicited. Neurological: Patient is alert and oriented to person, place and time. The patient has symmetrical motor strength in all four extremities. Cranial nerves are grossly intact. Deep tendon reflexes are symmetrical and equal in all four extremities. Psychiatric: The patient has an appropriate affect and does not exhibit any anxiety or depression. Triage Information Reviewed: Yes Vital Signs On Initial Exam: Initial Vitals Temp Pulse Resp BP Pulse Ox 98.1 F 102 18 110/82 100 07/25/19 10:51 07/25/19 10:51 07/25/19 10:51 07/25/19 10:51 07/25/19 10:51 Vital Signs Reviewed: Yes Procedures - Sedation Patient Received Moderate/Deep Sedation with Procedure: No Diagnostics - Vital Signs Vital Signs Temp Pulse Resp BP Pulse Ox 07/25/19 10:51 98.1 F 102 18 110/82 100 - Laboratory Result Diagrams: 07/25/19 11:39 07/25/19 11:39 Lab Statement: Any lab studies that have been ordered have been reviewed, and results considered in the medical decision making process. Re-Evaluation - Re-Evaluation First Eval Re-Evaluation Time: 12:45 Comment: Patient is concerned for discharge despite negative findings at this time. We will consult cardiology. Second Eval Re-Evaluation Time: 13:50 Comment: We discussed all results and plan for discharge. Third Eval Re-Evaluation Time: 14:00 Comment: Patient states she is experiencing chest discomfort. Course/Dx - Course Course Of Treatment: Ms. Alan with a concern for a few days of palpitations. Reading on the Internet and talking to a friend she came to the conclusion that the palpitations were related to her having stopped taking oxycodone. She was started opioid lorena and started on oxycodone on Thursday after her surgery. She went 12 hours without taking oxycodone on Thursday and had palpitations. For some reason she was given the advice to taper off the oxycodone rather than stopping it out right. She has very little pain and states that she does not need to take it. I recommended to her that she not take any oxycodone anymore although it is entirely unclear to me whether her symptoms are related in any way to the oxycodone. She was kept on a monitor here while labs were checked again. She was noted to have a rare PVC on the monitor. I tried to reassure her that nothing dangerous is happening and that she would be safe going home and getting follow-up with her PCP for the palpitations. We try to schedule her for a Holter monitor but were unable to do it acutely. I recommended that she call [facility] to schedule it herself first thing in the morning. Unfortunately she was not reassured by my ministrations and requested that she be admitted overnight to be kept on the monitor. I do not think that I would be able to find anyone willing to admit her and tried to compromise that I would speak with the court transcriber. I spoke with Dr. Sun who agreed that she was safe to go home and follow up and recommended against her taking anymore Suboxone. She was still not satisfied with this result that was the best I could do. I do not think anything dangerous is happening. She may very well have a dysrhythmia and hopefully the Holter monitor will help clarify things - Diagnoses Provider Diagnoses: Palpitations, PVCs (premature ventricular contractions) - Physician Notifications Discussed Care Of Patient With: Misbah Sun - cardiology Time Discussed With Above Provider: 13:00 Instructed by Provider To: Other - I discussed the patient's case with Dr. Sun , and he recommends Holter monitor for the patient. Discharge ED - Sign-Out/Discharge Documenting (check all that apply): Patient Departure - Patient will be discharged home. - Discharge Plan Condition: Stable Disposition: HOME Patient Education Materials: Heart Palpitations (DC) Referrals: Elsi Slater MD [Primary Care Provider] - 3 Days Additional Instructions: Follow up with your primary care provider in 2-3 days. Return to the emergency department for any new or worsening symptoms. - Billing Disposition and Condition Condition: STABLE Disposition: Home - Attestation Statements Document Initiated by Lyleibe: Yes Documenting Scribe: Jennifer Oates Provider For Whom Estiven is Documenting (Include Credential): Dr. Norbert Mcclure MD Scribe Attestation: Jennifer Atkins scribed for Dr. Norbert Mcclure MD on 07/25/19 at 1648. Scribe Documentation Reviewed: Yes Provider Attestation: The documentation as recorded by the Jennifer webster accurately reflects the service I personally performed and the decisions made by me, Dr. Norbert Mcclure MD Status of Scramy Document: Viewed
[2019-07-25 11:51] LABS: ABS Eosinophils 0.1 10^3/ul (0-0.6); ABS Monocytes 0.4 10^3/ul (0-0.8); Eosinophil % 1.9 %; Hematocrit 38 % (35-47); Lymphocyte % 22.3 %; Mean Corpuscular HGB Conc 35 g/dL (31-36); Mean Corpuscular Hemoglobin 31 pg (27-31); Mean Corpuscular Volume 90 fL (80-97); Mean Platelet Volume 7.4 fL (7.4-10.4); Platelet Count 232 10^3/uL (150-450); Red Blood Count 4.18 10^6 /uL (3.70-4.87); Red Cell Distribution Width 12 % (10-15); White Blood Count 4.5 10^3/uL (3.5-10.8)
[2019-07-25 12:15] LABS: Albumin 4.2 g/dL (3.2-5.2); Albumin/Globulin Ratio 1.7 (1-3); BUN/Creatinine Ratio 15.1 (8-20); Calcium 9.6 mg/dL (8.6-10.3); EGFR African American 101.3 (>60); EGFR Non-African American 83.7 (>60); Globulin 2.5 g/dL (2-4); Potassium 3.9 mmol/L (3.5-5.0); Total Bilirubin 0.6 mg/dL (0.2-1.0); Total Protein 6.7 g/dL (6.4-8.9)
[2019-07-25 15:32] VITALS: BP 125/81
== END 2019-07-25 15:31 | disposition home or self-care (01) ==
LOC: ED 10:47
DX: R00.2 Palpitations (principal); I49.3 Ventricular premature depolarization; J45.909 Unspecified asthma, uncomplicated; Z88.5 Allergy status to narcotic agent; Z91.048 Other nonmedicinal substance allergy status
CPT/HCPCS: 36415; 80053; 84484; 85025; 85379; 86140; 99283